=== PATIENT | male | born 1975 | race Caucasian/White ===

== ENCOUNTER → 2017-11-07 | Outpatient (CLI) | payer OTHER ==
--- NOTE | 2017-11-07 18:29 | XR ---
EXAMINATION TYPE: XR knee complete RT DATE OF EXAM: 11/07/2017 COMPARISON: NONE HISTORY: Fall. Pain. TECHNIQUE: 3 views FINDINGS: I see no fracture nor dislocation. Joint spaces are fairly normal. There is mild spurring o f the medial femoral and tibial condyles. There is no sign of joint effusion. IMPRESSION: Mild osteoarthritis. No fracture.
--- NOTE | 2017-11-07 18:30 | XR ---
EXAMINATION TYPE: XR tibia fibula RT DATE OF EXAM: 11/07/2017 COMPARISON: NONE HISTORY: Pain TECHNIQUE: 2 views FINDINGS: I see no fracture nor dislocation. Tibia and fibula appear intact. IMPRESSION: Negative right tibia and fibula exam.
--- NOTE | 2017-11-07 18:33 | XR ---
EXAMINATION TYPE: XR thoracic spine complete DATE OF EXAM: 11/07/2017 COMPARISON: NONE HISTORY: Fall. Pain. TECHNIQUE: 3 views FINDINGS: Thoracic vertebra have normal spacing and alignment. Posterior elements are intact. There i s no paraspinal mass. I see no compression fracture. IMPRESSION: Negative thoracic spine exam.
--- NOTE | 2017-11-07 18:36 | XR ---
EXAMINATION TYPE: XR lumbar spine 2 or 3V DATE OF EXAM: 11/07/2017 COMPARISON: NONE HISTORY: Pain. Back pain. TECHNIQUE: 3 views FINDINGS: Lumbar vertebra have normal alignment. Is mild narrowing at L4-5 disc. The other disc space s are normal. Posterior elements are intact. There is no compression fracture. Sacroiliac joints are normal. IMPRESSION: Mild degenerative disc change at L4-5. No fracture.
== END | disposition home or self-care (01) ==
LOC: RADXRMAIN 17:24
PROVIDERS: ATTEND Emergency Medicine
DX: M47.816 Spondylosis without myelopathy or radiculopathy, lumbar region (principal); M17.11 Unilateral primary osteoarthritis, right knee; S23.3XXA Sprain of ligaments of thoracic spine, initial encounter; M79.661 Pain in right lower leg
CPT/HCPCS: 72072; 72100

== ENCOUNTER → 2017-11-15 | Outpatient (CLI) | payer OTHER ==
--- NOTE | 2017-11-15 11:43 | CT ---
EXAMINATION TYPE: CT knee RT wo con DATE OF EXAM: 11/15/2017 COMPARISON: Radiograph dated 11/07/2017 HISTORY: Increasing right knee pain CT DLP: 394.6 mGycm Automated exposure control for dose reduction was used. FINDINGS: There is subtle increased sclerosis and central lucency of the weightbearing surface of the medial fe moral condyle with opposing surface tibial sclerosis. Of the weightbearing surface of the lateral fem oral condyle there is an 8 mm lucent region with protuberant adjacent osseous proliferation on series 9 image 40. Small marginal osseous phase of the lateral femoral condyle and lateral tibial plateau a re noted. Minimal medial compartment joint space narrowing is seen. Very small suprapatellar joint ef fusion is present without lipohemarthrosis. Evaluation of the ligaments and tendons on CT are suboptimal. However, there is concern for anterior cruciate ligament injury given its indistinctness on sagittal images and possible widening of the int ercondylar notch. No evidence of dislocation is identified. Very small suprapatellar osteophytes are noted. IMPRESSION: 1. SUBCHONDRAL SCLEROSIS OF THE MEDIAL FEMORAL CONDYLE AND TIBIAL PLATEAU WITH FINDING CONCERNING FOR SMALL OSTEOCHONDRAL DEFECT VERSUS IMPACTION FRACTURE. MRI IS RECOMMENDED FOR FURTHER EVALUATION. ADD ITIONALLY THERE ARE FINDINGS SUSPICIOUS FOR ANTERIOR CRUCIATE LIGAMENT IS INJURY ALTHOUGH CT IS NOT D EFINITIVE. 2. LATERAL COMPARTMENT FINDINGS THAT MAY RELATE TO OLD OSTEOCHONDRAL DEFECT OR SUBCHONDRAL CYSTIC BEBETO NGE WITH ADJACENT OSSEOUS PROLIFERATION, DEGENERATIVE. 3. MILD TRICOMPARTMENTAL ARTHROSIS.
== END | disposition home or self-care (01) ==
LOC: RADCTMAIN 10:50
PROVIDERS: ATTEND Emergency Medicine
DX: M17.11 Unilateral primary osteoarthritis, right knee (principal); R93.7 Abnormal findings on diagnostic imaging of other parts of musculoskeletal system

== ENCOUNTER → 2024-07-16 | Outpatient (CLI) | payer SELFPAY ==
--- NOTE | 2024-07-16 17:38 | US ---
EXAMINATION TYPE: US venous doppler duplex LE BI DATE OF EXAM: 07/16/2024 3:38 PM COMPARISON: NONE CLINICAL INDICATION: Male, 49 years old with history of D68.9 COAGULATION DEFECT R22.2 LUMP, TRUNK; e levated d dimer. , Pain TECHNIQUE: The lower extremity deep venous system is examined utilizing real time linear array sonog tee with graded compression, color doppler sonography, and spectral doppler. SIDE PERFORMED: Bilateral FINDINGS: VESSELS IMAGED: Common Femoral Vein Deep Femoral Vein Greater Saphenous Vein * Femoral Vein Popliteal Vein Small Saphenous Vein * Proximal Calf Veins (* superficial vessels) Right Leg: Negative for DVT, Color Doppler imaging shows patency of the vessels. Spectral waveforms are within normal limits. Left Leg: Negative for DVT, Color Doppler imaging shows patency of the vessels. Spectral waveforms a re within normal limits. IMPRESSION: 1. Bilateral lower extremity ultrasound negative for deep venous thrombosis. [facility], , 07/16/2024 5:35 PM
--- NOTE | 2024-07-17 08:19 | US ---
EXAMINATION TYPE: US mass soft tissue chest/back DATE OF EXAM: 07/16/2024 COMPARISON: NONE CLINICAL INDICATION: Male, 49 years old with history of D68.9 COAGULATION DEFECT R22.2 LUMP, TRUNK; L eft side lump rib cage. TECHNIQUE: FINDINGS: Isoechoic area seen lump area left side measuring 3.3 x .7 x 2.4 cm. This is nonspecific. Additional workup with CT could be performed. IMPRESSION: Nonspecific isoechoic focus above the rib within the left side corresponding the palpabl e abnormality. [facility], , 07/17/2024 8:15 AM
== END | disposition home or self-care (01) ==
LOC: RADUSWWP 14:50
PROVIDERS: ATTEND Internal Medicine Hematology & Oncology
DX: D68.9 Coagulation defect, unspecified (principal); R22.2 Localized swelling, mass and lump, trunk; F43.10 Post-traumatic stress disorder, unspecified; F90.0 Attention-deficit hyperactivity disorder, predominantly inattentive type; F32.A Depression, unspecified
CPT/HCPCS: 93970